=== PATIENT | male | born 1945 | race Caucasian/White ===

== ENCOUNTER 2016-08-20 20:25 | Inpatient (IN) | payer MEDICARE ==
[~2016-08-20] VITALS: Ht 172.7 cm; Wt 56.5 kg
[~2016-08-20 20:25] MED LIST: CYAN1000P SC; NEXI40CA PO; OXYC-68 PO; [UNRECOGNIZED DRUG - OTHER]
[2016-08-20 20:27] VITALS: BP 140/65; PULSE 80; RESP 16; TEMP 97.5; O2SAT 97
--- NOTE | 2016-08-20 21:13 | PD ---
HPI Chief Complaint: Abdominal Pain Time Seen by Provider: 21:06 Travel History International Travel<30 days: No Contact w/Intl Traveler<30days: No Traveled to known affect area: No History of Present Illness HPI 70-year-old male with history of colon cancer who underwent chemotherapy and radiation therapy, presents to the emergency department for admission. Patient has had very little output through his colostomy today with significant abdominal pain. Denies any fever or chills. Denies any urinary symptoms. I think chest pain or tightness. No difficulty breathing. He was seen and evaluated and [facility] where CT showed an obstruction. Patient's surgeon is Dr. Sarmiento who advised admission to [facility]. Patient presented to the ED. Dr. Sarmiento contacted nursing staff and requested direct admission and placement on 7 N.. PFSH Past Medical History Cancer: Yes (colon) Cardiovascular Problems: No Chemotherapy: Yes Diabetes: No Endocrine: No Genitourinary: No Hepatitis: No Hiatal Hernia: No Immune Disorder: No Musculoskeletal: No Neurologic: No Psychiatric: No Reproductive: No Respiratory: No Radiation Therapy: Yes Thyroid Disease: No Past Surgical History Abdominal Surgery: Yes (x3) AICD: No Body Medical Devices: NONE Cardiac Surgery: No Ear Surgery: No Endocrine Surgery: No Eye Surgery: No Genitourinary Surgery: No Joint Replacement: No Oral Surgery: No Pacemaker: No Thoracic Surgery: No Social History Alcohol Use: Yes (4-5 beers a day) Tobacco Use: No Substance Use: No Allergies-Medications (Allergen,Severity, Reaction): Coded Allergies: Morphine (Unverified Allergy, Unknown, RASH, ITCHING, INEFFECTIVE TO MANAGE PAIN, 08/20/16) Reported Meds & Prescriptions Reported Meds & Active Scripts Active No Active Prescriptions or Reported Medications Review of Systems Except as stated in HPI: all other systems reviewed are Neg Physical Exam Narrative GENERAL: Thin male patient, lying in bed, in no acute distress SKIN: Warm and dry. HEAD: Atraumatic. Normocephalic. EYES: Pupils equal and round. No scleral icterus. No injection or drainage. ENT: No nasal bleeding or discharge. Mucous membranes pink and moist. NECK: Trachea midline. No JVD. CARDIOVASCULAR: Regular rate and rhythm. No murmur appreciated. RESPIRATORY: No accessory muscle use. Clear to auscultation. Breath sounds equal bilaterally. GASTROINTESTINAL: Abdomen soft, generalized moderate tenderness to palpation. Left lower quadrant colostomy intact. I am unable to hear any bowel sounds. Hepatic and splenic margins not palpable. MUSCULOSKELETAL: No obvious deformities. No clubbing. No cyanosis. No edema. NEUROLOGICAL: Awake and alert. No obvious cranial nerve deficits. Motor grossly within normal limits. Normal speech. PSYCHIATRIC: Appropriate mood and affect; insight and judgment normal. Data Data Last Documented VS Vital Signs Date Time Temp Pulse Resp B/P Pulse Ox O2 Delivery O2 Flow Rate FiO2 08/20/16 20:27 97.5 80 16 140/65 97 Room Air Orders Admit Order (Ed Use Only) (08/20/16 20:59) MDM Medical Decision Making Medical Screen Exam Complete: Yes Emergency Medical Condition: Yes Medical Record Reviewed: Yes Differential Diagnosis Bowel obstruction versus constipation versus dehydration Narrative Course 70-year-old male presents to the emergency department at the instruction of Dr. Sarmiento. Dr. Sarmiento spoke with Bindu, registered nurse. Requested admission to his service and placement on 7 N. He will additional orders and on the patient. 7 N. does not have any beds available with Dr. Polo who is taking call for Dr. Sarmiento and states the patient can go "anywhere." I felt the patient. He appears without distress. He doesn't generalized tenderness to palpation of the abdomen with no rebound or guarding. Admission order is placed. Patient is understanding of the splenic care. Diagnosis Primary Impression: Bowel obstruction Qualified Code: K56.60 - Intestinal obstruction, unspecified type Admitting Information Admitting Physician Requests: Admit Scripts No Active Prescriptions or Reported Meds Condition: Stable Lucia An Aug 20, 2016 21:13
[2016-08-20] MEDS: HYDROmorphone HCL PF 1 MG/ML VIAL IV PUSH PRN (21:56)
[2016-08-20] MEDS: PANTOPRAZOLE SODIUM 40 MG VIAL IV PUSH SCH (21:56)
[2016-08-20] MEDS: SODIUM CHLOR 0.9% 1000 ML INJ 1,000 ML IV SCH (21:56)
[2016-08-20 22:07] LABS: AUTOMATED NEUTROPHIL # 13.7 TH/MM3 (1.8-7.7); BASOPHIL # 0.2 TH/MM3 (0-0.2); BASOPHIL % 1.1 % (0.0-2.0); HEMATOCRIT 41.1 % (39.0-51.0); HEMO FLAGS DIFF FINAL; LYMPH % 5.5 % (9.0-44.0); LYMPHOCYTE # 0.9 TH/MM3 (1.0-4.8); MEAN CELL VOLUME 90.2 FL (80.0-100.0); MEAN CORPUSCULAR HEMOGLOBIN 30.5 PG (27.0-34.0); MEAN CORPUSCULAR HGB CONC 33.8 % (32.0-36.0); MONO % 7.9 % (0.0-8.0); NEUT % 85.5 % (16.0-70.0); PLATELET COUNT 208 TH/MM3 (150-450); RED BLOOD COUNT 4.55 MIL/MM3 (4.50-5.90); RED CELL DISTRIBUTION WIDTH 13.9 % (11.6-17.2)
[2016-08-20 22:29] LABS: ANION GAP 8 MEQ/L (5-15); AST (GOT) 26 U/L (15-37); BICARBONATE 34.8 MEQ/L (21.0-32.0); BLOOD UREA NITROGEN 10 MG/DL (7-18); CHLORIDE 94 MEQ/L (98-107); GLOMERULAR FILTRATION RATE 85 ML/MIN (>89); POTASSIUM 4.2 MEQ/L (3.5-5.1); SODIUM (NA) 137 MEQ/L (136-145)
[2016-08-20 22:32] LABS: ALKALINE PHOSPHATASE 158 U/L (45-117); ALT (GPT) 38 U/L (12-78); TOTAL BILIRUBIN ADULT 0.4 MG/DL (0.2-1.0)
[2016-08-20 23:45] VITALS: BP 150/67; PULSE 71; RESP 16; O2SAT 97
[2016-08-21 04:20] VITALS: BP 133/61; PULSE 67; RESP 16; TEMP 98.6; O2SAT 96
[2016-08-21] MEDS: SODIUM CHLOR 0.9% 1000 ML INJ 1,000 ML IV SCH ×4 (05:35→20:57)
[2016-08-21] MEDS: HYDROmorphone HCL PF 1 MG/ML VIAL IV PUSH PRN (06:53)
--- NOTE | 2016-08-21 06:56 | RADRPT ---
EXAM DATE/TIME: 08/21/2016 06:43 [facility] COMPARISON: No previous studies available for comparison. INDICATIONS : Abdominal pain. MEDICAL HISTORY : Carcinoma, colon. SURGICAL HISTORY : Colostomy. ENCOUNTER: Initial ACUITY: 3 days PAIN SCORE: Non-responsive. LOCATION: abdomen, all quadrants. FINDINGS: Supine and upright views of the abdomen reveal a single loop of gas dilated small bowel within the mi dabdomen. The remaining bowel loops are normal in caliber. Oral contrast is seen throughout the colon . An ostomy overlies left lower quadrant. No free air. IV contrast is seen within the urinary bladder . Lung bases are clear. Calcified granuloma noted within the left lung base. CONCLUSION: Nonspecific bowel gas pattern with an isolated loop of dilated small bowel within the midabdomen. Kali Layne Jr., MD on August 21, 2016 at 6:53 Board Certified Radiologist. This report was verified electronically.
[2016-08-21 08:37] VITALS: BP 114/59; PULSE 75; RESP 16; O2SAT 97
[2016-08-21 13:10] VITALS: BP 122/62; PULSE 70; RESP 18; O2SAT 100
[2016-08-21 16:00] VITALS: BP 124/61; PULSE 67; RESP 14; TEMP 96.3; O2SAT 96
--- NOTE | 2016-08-21 17:00 | HHI.PR ---
Subjective Remarks No N or V today. No pain. No significant BMs. AxR with contrast from CT in colon , but 1 dilated loop of SB. Refused N/G. Objective Vital Signs Date Time Temp Pulse Resp B/P Pulse Ox O2 Delivery O2 Flow Rate FiO2 08/21/16 13:10 70 18 122/62 100 08/21/16 08:37 75 16 114/59 97 08/21/16 04:20 98.6 67 16 133/61 96 Room Air 08/20/16 23:45 71 16 150/67 97 Room Air 08/20/16 22:18 16 08/20/16 20:27 97.5 80 16 140/65 97 Room Air Result Diagram: 08/20/16213908/20/162139 Objective Remarks Abd: flat,non tender. No stool in colostomy. Assessment and Plan Assessment and Plan Partial SBO- contrast in colon. Cont to watch and hope for resolution o/w will need laparotomy. Will try Entereg. Alejo Sarmiento MD Aug 21, 2016 17:00
--- NOTE | 2016-08-21 17:24 | MH ---
cc: GREY CHRISTENSEN M.D. DATE OF ADMISSION: 08/20/2016 CHIEF COMPLAINT Abdominal pain small bowel obstruction. HISTORY OF PRESENT ILLNESS This patient is well-known to me he underwent a left colectomy low anterior resection some years ago by Dr. Danilo Blackburn in [place]. Postoperatively he had radiation therapy and chemotherapy and subsequently developed a stricture of the anastomosis and then subsequently his rectum and sigmoid the remainder of his colon on the left side was strictured. He is having a lot of difficulty with his bowel motions and he was referred over to me for evaluation. About 2 years ago he underwent laparotomy by me and we did a diverting loop colostomy above his resection to allow him to stool. At the time of that surgery he was noted to have a fair amount of distal small bowel radiation changes which seemed to be problematic and it went right to the cecal area. Rather resect all of this tissue. We decided to an internal bypass with an ileal to an ascending colon bypass. 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 About six days prior to admission he developed intermittent abdominal pains and mainly in the upper abdomen. He did have some nausea and vomiting which passed. He was still stooling small amounts at that point and still continued to try to eat but has done poorly with that. Of note, I did a colonoscopy on him about a month and half ago because of his previous history of rectal cancer. At that time it was a normal examination. Yesterday we sent him to the hospital on [place] near where he is from to have a plain abdominal x-ray which showed a lot of air fluid levels and picture of what appeared to be a small bowel obstruction. He then underwent a CT scan of the abdomen and pelvis with oral contrast and I do not have that report or the study but I had a verbal report saying that he had an apparent at least partial small bowel obstruction. At this point I am still unable to access that study. Nevertheless, the patient was offered admission to the hospital yesterday afternoon and declined at first but then called back later and we directly admitted him for a small bowel obstruction. PAST MEDICAL HISTORY, SOCIAL HISTORY AND FAMILY HISTORY Review of systems was not negative other than above. PHYSICAL EXAMINATION IN GENERAL: Well-developed thin male no acute distress at this time skin is warm and dry. HEAD, EYES, EARS, NOSE, AND THROAT: Extraocular muscles intact. NECK: Supple. CHEST: Clear. ABDOMEN: The abdomen is flat and soft, essentially nontender. He said that his tenderness is usually in the upper abdomen when he gets it. The stoma is not putting out any stool to speak of the small amount of liquid. EXTREMITIES: Range of motion within normal. NEUROLOGIC: Grossly normal. IMPRESSION At least partial small bowel obstruction. PLAN 1. We are going to follow him closely and watch and see if he improves up. 2. He does not improve in the next day to he has been require a laparotomy. 3. I have explained all this to him. He understands. MD HUMA Moran/marisa /4:48 PM /5:05 PM
[2016-08-21 20:00] VITALS: BP 115/56; PULSE 65; RESP 20; TEMP 97.3; O2SAT 96
[2016-08-21] MEDS: PANTOPRAZOLE SODIUM 40 MG VIAL IV PUSH SCH (20:58)
[2016-08-21] MEDS: ALVIMOPAN 12 MG CAPSULE PO SCH (20:58)
[2016-08-22] VITALS: BP 127/60; PULSE 73; RESP 20; TEMP 97.7; O2SAT 97
[2016-08-22 04:43] LABS: AUTOMATED NEUTROPHIL # 7.9 TH/MM3 (1.8-7.7); BASOPHIL # 0.3 TH/MM3 (0-0.2); BASOPHIL % 2.5 % (0.0-2.0); EOSINOPHIL # 0.1 TH/MM3 (0-0.4); EOSINOPHIL % 0.6 % (0.0-4.0); HEMATOCRIT 33.7 % (39.0-51.0); LYMPH % 10.9 % (9.0-44.0); LYMPHOCYTE # 1.1 TH/MM3 (1.0-4.8); MEAN CELL VOLUME 90.7 FL (80.0-100.0); MEAN CORPUSCULAR HEMOGLOBIN 30.7 PG (27.0-34.0); MEAN CORPUSCULAR HGB CONC 33.8 % (32.0-36.0); PLATELET COUNT 171 TH/MM3 (150-450); RED BLOOD COUNT 3.72 MIL/MM3 (4.50-5.90); RED CELL DISTRIBUTION WIDTH 13.6 % (11.6-17.2); WHITE BLOOD COUNT 10.3 TH/MM3 (4.0-11.0)
[2016-08-22 04:48] LABS: HEMO FLAGS AUTO DIFF
[2016-08-22 05:12] LABS: BICARBONATE 28.5 MEQ/L (21.0-32.0); POTASSIUM 4.1 MEQ/L (3.5-5.1)
[2016-08-22 06:26] LABS: BANDS 1 % (0-6); BASOPHILS 2 % (0-2); METAMYELOCYTES 4 % (0-1); MYELOCYTES 1 % (0-0); OVALOCYTES 1+ (NORMAL); POLYS (SEG NEUTROPHILS) 72 % (16-70); WBC DIFF SAMPLE 100
[2016-08-22 06:27] LABS: PLATELET ESTIMATE SMEAR NORMAL (NORMAL); PLATELET MORPHOLOGY NORMAL (NORMAL); SCAN/DIFF FINAL DIFF MANUAL
--- NOTE | 2016-08-22 06:40 | RADRPT ---
EXAM DATE/TIME: 08/22/2016 05:43 [facility] COMPARISON: ABDOMEN FLAT & UPRIGHT, August 21, 2016, 6:43. INDICATIONS : Abdominal pain. MEDICAL HISTORY : Carcinoma, colon. SURGICAL HISTORY : Colostomy. ENCOUNTER: Subsequent ACUITY: 4 - 6 days PAIN SCORE: 4/10 LOCATION: Bilateral all quadrants abdomen FINDINGS: Supine and upright views of the abdomen show resolution of the previously seen distended loop of smal l bowel within the midabdomen. Normal bowel loops now seen. Left lower quadrant ostomy noted. Small v olume oral contrast scattered throughout the colon. Venous calcifi should overlie the pelvis. Scoliot ic curvature involving the lumbar spine. Calcifications involving the abdominal aorta. CONCLUSION: No dilated loops of bowel on the current study. Kali Layne Jr., MD on August 22, 2016 at 6:37 Board Certified Radiologist. This report was verified electronically.
[2016-08-22] MEDS: SODIUM CHLOR 0.9% 1000 ML INJ 1,000 ML IV SCH ×2 (07:20→13:52)
[2016-08-22 08:00] VITALS: BP 113/56; PULSE 62; RESP 18; TEMP 95.8; O2SAT 98
[2016-08-22] MEDS: ALVIMOPAN 12 MG CAPSULE PO SCH ×2 (08:57→20:06)
--- NOTE | 2016-08-22 11:28 | HHI.PR ---
Subjective Remarks SBO passed moderate stool this am more comfortable Objective Vital Signs Date Time Temp Pulse Resp B/P Pulse Ox O2 Delivery O2 Flow Rate FiO2 08/22/16 08:00 95.8 62 18 113/56 98 08/22/16 00:00 97.7 73 20 127/60 97 08/21/16 20:00 97.3 65 20 115/56 96 08/21/16 16:00 96.3 67 14 124/61 96 08/21/16 13:10 70 18 122/62 100 I/O 08/21/16 08/21/16 08/21/16 08/22/16 08/22/16 08/22/16 07:00 15:00 23:00 07:00 15:00 23:00 Intake Total 1155 ml 1210 ml Output Total 700 ml 850 ml Balance 455 ml 360 ml Intake Oral 0 ml 0 ml IV Total 1155 ml 1210 ml Output Urine Total 700 ml 600 ml Stool Total 250 ml # Bowel Movements 0 0 Result Diagram: 08/22/16 0318 08/22/16 0318 Objective Remarks Abdomen soft, nondistended, nontender Assessment and Plan Assessment and Plan Clears cautiously Mobilize Kamala Ames MD Aug 22, 2016 11:28
[2016-08-22 12:00] VITALS: BP 111/57; PULSE 63; RESP 16; TEMP 96.9; O2SAT 93
[2016-08-22] MEDS: D5-LR + KCL 20 MEQ INJ 1,000 ML IV SCH (14:17)
[2016-08-22 16:00] VITALS: BP 113/55; PULSE 57; RESP 14; TEMP 95.5; O2SAT 94
[2016-08-22 20:00] VITALS: BP 117/57; PULSE 60; RESP 18; TEMP 97.6; O2SAT 96
[2016-08-22] MEDS: PANTOPRAZOLE SODIUM 40 MG VIAL IV PUSH SCH (20:06)
[2016-08-23] VITALS: BP 130/63; PULSE 58; RESP 18; TEMP 97.9; O2SAT 96
[2016-08-23 08:00] VITALS: BP 123/58; PULSE 59; RESP 16; TEMP 97.2; O2SAT 98
[2016-08-23] MEDS: ALVIMOPAN 12 MG CAPSULE PO SCH ×2 (08:11→19:47)
[2016-08-23] MEDS: D5-LR + KCL 20 MEQ INJ 1,000 ML IV SCH (11:35)
[2016-08-23 12:00] VITALS: BP 122/56; PULSE 59; RESP 18; TEMP 97; O2SAT 98
--- NOTE | 2016-08-23 12:16 | HHI.PR ---
Subjective Remarks SBO comfortable, hungry Objective Vital Signs Date Time Temp Pulse Resp B/P Pulse Ox O2 Delivery O2 Flow Rate FiO2 08/23/16 12:00 97.0 59 18 122/56 98 08/23/16 08:00 97.2 59 16 123/58 98 08/23/16 00:00 97.9 58 18 130/63 96 08/22/16 20:00 97.6 60 18 117/57 96 08/22/16 16:00 95.5 57 14 113/55 94 I/O 08/22/16 08/22/16 08/22/16 08/23/16 08/23/16 08/23/16 07:00 15:00 23:00 07:00 15:00 23:00 Intake Total 1210 ml 945 ml 564 ml 665 ml Output Total 850 ml 1000 ml 1025 ml 300 ml Balance 360 ml -55 ml -461 ml 365 ml Intake Oral 0 ml 0 ml 240 ml 240 ml IV Total 1210 ml 945 ml 324 ml 425 ml Output Urine Total 600 ml 1000 ml 1025 ml 300 ml Stool Total 250 ml # Bowel Movements 0 0 0 0 Result Diagram: 08/22/1631708/22/16317 Objective Remarks Abdomen soft, nondistended, nontender stoma pink, flatus only in bag Assessment and Plan Assessment and Plan Try fulls Irrigate stoma Kamala Ames MD Aug 23, 2016 12:16
[2016-08-23 16:00] VITALS: BP 124/59; PULSE 66; RESP 18; TEMP 97.8; O2SAT 98
[2016-08-23] MEDS: PANTOPRAZOLE SODIUM 40 MG VIAL IV PUSH SCH (19:47)
[2016-08-23 20:00] VITALS: BP 115/58; PULSE 66; RESP 18; TEMP 97.6; O2SAT 96
[2016-08-24] VITALS: BP 116/56; PULSE 60; RESP 18; TEMP 97.1; O2SAT 95
[2016-08-24] MEDS: D5-LR + KCL 20 MEQ INJ 1,000 ML IV SCH (05:15)
[2016-08-24 08:00] VITALS: BP 108/57; PULSE 61; RESP 16; TEMP 96.5; O2SAT 97
[2016-08-24] MEDS: ALVIMOPAN 12 MG CAPSULE PO SCH (08:48)
--- NOTE | 2016-08-24 09:53 | HHI.PR ---
Subjective Remarks No N or V today. No pain. Multiple loose BMs not recorded. Hungry Objective Vital Signs Date Time Temp Pulse Resp B/P Pulse Ox O2 Delivery O2 Flow Rate FiO2 08/24/16 08:00 96.5 61 16 108/57 97 08/24/16 00:00 97.1 60 18 116/56 95 08/23/16 20:00 97.6 66 18 115/58 96 08/23/16 16:00 97.8 66 18 124/59 98 08/23/16 12:00 97.0 59 18 122/56 98 I/O 08/23/16 08/23/16 08/23/16 08/24/16 08/24/16 08/24/16 07:00 15:00 23:00 07:00 15:00 23:00 Intake Total 665 ml 2072 ml 376 ml 537 ml Output Total 300 ml 1800 ml 725 ml 250 ml Balance 365 ml 272 ml -349 ml 287 ml Intake Oral 240 ml 1800 ml 120 ml 120 ml IV Total 425 ml 272 ml 256 ml 417 ml Output Urine Total 300 ml 1400 ml 725 ml 250 ml Stool Total 400 ml # Bowel Movements 0 0 0 Result Diagram: 08/22/1631708/22/16317 Objective Remarks Abd: flat,non tender. Liquid stool in colostomy. Assessment and Plan Assessment and Plan Resolved SBO Regular diet. Check AxR. D/C today Alejo Sarmiento MD Aug 24, 2016 09:53
--- NOTE | 2016-08-24 10:31 | RADRPT ---
EXAM DATE/TIME: 08/24/2016 10:13 [facility] COMPARISON: ABDOMEN FLAT & UPRIGHT, August 22, 2016, 5:43. INDICATIONS : Evaluate resolving partial bowel obstruction, no pain at this time MEDICAL HISTORY : Carcinoma, colon. SURGICAL HISTORY : Colostomy. ENCOUNTER: Subsequent ACUITY: 1 week PAIN SCORE: 0/10 LOCATION: Bilateral abdomen FINDINGS: Scattered air fluid levels are seen on the upright abdomen. There is no significant distention. The re is no free air. Lungs bases are clear. CONCLUSION: 1. Scattered air fluid levels without free air or obstruction. 2. These have diminished somewhat in the interval. Tim Corrales MD FACR on August 24, 2016 at 10:23 Board Certified Radiologist. This report was verified electronically.
--- NOTE | 2016-08-24 10:37 | HHI.DCPOC ---
Discharge Care Plan Diagnosis: (1) Small bowel obstruction Your Health Problems Are: Appetite Changes Irregular Bowel Function Exercise Tolerance Goals to Promote Your Health * To prevent worsening of your condition and complications * To maintain your health at the optimal level Directions to Meet Your Goals Take your medications as prescribed Follow your dietary instruction Follow activity as directed Keep your appointments as scheduled Take your immunizations and boosters as scheduled If your symptoms worsen call your PCP, if no PCP go to Urgent Care Center or Emergency Room Smoking is Dangerous to Your Health. Avoid second hand smoke Call the 24-hour hour crisis hotline for domestic abuse at Alejo Sarmiento MD Aug 24, 2016 10:36
--- NOTE | 2016-09-13 06:37 | MD ---
cc: GREY CHRISTENSEN M.D. ADMISSION DATE: 08/20/2016 DISCHARGE DATE: 08/24/2016 ADMISSION DIAGNOSIS Small bowel obstruction. DISCHARGE DIAGNOSIS Small bowel obstruction. HISTORY This patient was well-known to me. He had undergone a left colectomy and low anterior resection some years ago by Dr. Danilo Ross in [place]. Postoperatively he had radiation therapy and chemotherapy and subsequently he developed a stricture of the anastomosis and then subsequently his rectum and sigmoid, and the remainder of his colon, left side, was strictured. He was having a lot of difficulties with his bowel motions and he was referred to me for evaluation. About two years ago he underwent a laparotomy by me and we did a diverting loop colostomy above his resection to allow him to stool, and at the time of that surgery he was noted to have a fair amount of distal small bowel radiation changes which seemed to be problematic going right into the cecal area. Rather than resect all this tissue, we decided to do an internal bypass with an ileal to ascending colon bypass. He has done well up until this time. About six days prior to this admission, he developed intermittent abdominal pains mainly in the upper abdomen. He had some nausea and vomiting which passed. He was stooling small amounts at that point but still continues to try to eat and had done poorly with that. Of note, I did a colonoscopy on him about a [id number]-half ago because of his previous history of rectal cancer. There was no sign of any recurrent or residual carcinoma. He had x-rays at the hospital in [place] on the day prior to admission showing a lot of air fluid levels and there appeared to be small bowel obstruction. He underwent a CT scan with oral contrast showing what appeared to be at least a partial small bowel obstruction. Physical exam on admission shows his abdomen was flat and essentially nontender. Stoma was not putting out any stool to speak of. HOSPITAL COURSE: The patient was admitted to the hospital on 08/21/2016. On 08/22, he passed a moderate amount of stool and was now more comfortable. He was started on clear liquids slowly and on the following day continued to improve and was tried on full liquids. On 08/24/2016 he was on regular food. He had no nausea or vomiting. His abdominal x-ray had improved markedly. The patient was stooling large amounts as mentioned. DISCHARGE INSTRUCTIONS: The patient was discharged from the hospital on August 24, 2016, in good condition. He was instructed to do no driving for several days to a week until he felt good again. He was instructed to call me with any problems. MD HUMA Moran/GRACY /1:05 PM /12:33 PM
== END 2016-08-24 13:06 | disposition home or self-care (01) | DRG 390 ==
LOC: NEPC 20:25 → NEDA 21:02 → NEDH 08-21 01:34 → N07A 08-21 15:08
PROVIDERS: ADMIT Colon & Rectal Surgery; ATTEND Colon & Rectal Surgery
DX: K56.60 Unspecified intestinal obstruction (principal); Z85.048 Personal history of other malignant neoplasm of rectum, rectosigmoid junction, and anus; Z93.3 Colostomy status
CPT/HCPCS: 74020; 80048; 80053; 85007; 85025; 85027; 99284; C9113; J1170; J3480; J7030